=== PATIENT | male | born 1935 | race Caucasian/White ===

== ENCOUNTER 2018-09-19 10:41 | Inpatient (IN) | payer OTHER, BC ==
[~2018-09-19] VITALS: Ht 182.9 cm; Wt 78.0 kg
[2018-09-19 10:44] VITALS: BP 164/70
[2018-09-19 11:21] LABS: BASOPHILS # (AUTO) 0.1 K/uL (0.00-0.22); EOSINOPHILS # (AUTO) 0.1 K/uL (0-0.4); EOSINOPHILS % (AUTO) 0.8 % (0.0-4.0); HEMATOCRIT 42.1 % (36-52); LYMPHOCYTES # (AUTO) 2.2 K/uL (2.0-11.5); LYMPHOCYTES % (AUTO) 27.6 % (20.5-51.1); MEAN CORPUSCULAR HEMOGLOBIN 29 pg (27-31); MEAN CORPUSCULAR HGB CONC 33 g/dL (33-37); MEAN CORPUSCULAR VOLUME 88.1 fL (80-94); MONOCYTES # (AUTO) 0.4 K/uL (0.8-1.0); MONOCYTES % (AUTO) 5.1 % (1.7-9.3); NEUTROPHILS # (AUTO) 5.1 K/uL (1.8-7.7); NEUTROPHILS % (AUTO) 65.5 % (42.2-75.2); PLATELET COUNT (AUTO) 173 K/uL (140-450); RED BLOOD CELL COUNT(AUTO) 4.78 MIL/uL (4.20-6.10); RED CELL DISTRIBUTION WIDTH 14.7 % (11.6-13.7); WHITE BLOOD COUNT (AUTO) 7.8 K/uL (4.8-10.8)
[2018-09-19 11:24] LABS: ANION GAP 11.1 (8-16); CARBON DIOXIDE 27.6 mmol/L (21-32); CHLORIDE 100 mmol/L (98-107); CREATININE 1.4 mg/dL (0.7-1.3); GLUCOSE 143 mg/dL (74-106); POTASSIUM 3.7 mmol/L (3.5-5.1); SODIUM SERUM 135 mmol/L (136-145); UREA NITROGEN, BLOOD 15 mg/dL (7-18)
[2018-09-19 11:27] LABS: PROTHROMBIN TIME 10.6 secs (10.8-13.4)
[2018-09-19 11:30] LABS: ALBUMIN 3.4 g/dL (3.4-5.0); ASPARTATE AMINOTRANSFERASE 19 U/L (15-37); TOTAL BILIRUBIN 0.9 mg/dL (0.0-1.0)
[2018-09-19] MEDS ORDERED: DOCUSATE SODIUM 100 MG GELCAP PO PRN (12:45)
[2018-09-19] MEDS ORDERED: ACETAMINOPHEN 325 MG TAB PO PRN (12:45)
[2018-09-19] MEDS ORDERED: MORPHINE SULFATE 4 MG/ML SYR IVP PRN (12:45)
[2018-09-19] MEDS ORDERED: ONDANSETRON 4 MG/2 ML VIAL IM/IVP PRN (12:45)
[2018-09-19] MEDS ORDERED: HYDROcodone/APAP 5/325 MG 1 TAB TAB PO PRN (12:45)
[2018-09-19 12:49] LABS: LEUKOCYTE ESTERASE ,URINE 2+ (NEGATIVE)
[2018-09-19 12:50] LABS: APPEARANCE,URINE HAZY (CLEAR); BILIRUBIN,URINE NEGATIVE (NEGATIVE); BLOOD, URINE NEGATIVE (NEGATIVE); COLOR,URINE YELLOW (YELLOW); UGLUCOSE NEGATIVE (NEGATIVE)
[2018-09-19 12:51] LABS: NITRITE, URINE NEGATIVE (NEGATIVE)
[2018-09-19] MEDS ORDERED: cefTRIAXone 1,000 MG VIAL ONE (12:52)
[2018-09-19] MEDS ORDERED: MECLIZINE 25 MG TAB PO PRN (12:55)
[2018-09-19 13:01] LABS: RBC,URINE 0-5 (RARE) /HPF (0-5); WBC,URINE 20-60 /HPF (0-5)
[2018-09-19] MEDS ORDERED: CARV3.12 PO (13:20)
[2018-09-19] MEDS ORDERED: ATOR10TA PO (13:20)
[2018-09-19] MEDS ORDERED: TAMS0.4C96 PO (13:20)
[2018-09-19] MEDS ORDERED: LEVO0.087 PO (13:20)
[2018-09-19] MEDS ORDERED: ALLO100T21 PO (13:20)
[2018-09-19] MEDS ORDERED: DOCU-299 PO (13:20)
[2018-09-19] MEDS ORDERED: ELA50 PO (13:20)
[2018-09-19] MEDS ORDERED: LUBI24SG4 PO (13:20)
[2018-09-19 13:25] LABS: MAGNESIUM 1.9 mg/dL (1.8-2.4); PHOSPHORUS 2.4 mg/dL (2.5-4.9)
[2018-09-19 13:26] LABS: FREE T4 (FREE THYROXINE) 1.28 ng/dL (0.76-1.46); THYROID STIMULATING HORMONE 0.85 uIU/mL (0.34-3.74)
[2018-09-19 13:55] VITALS: BP 161/79
[2018-09-19] MEDS ORDERED: ALBUTEROL SULFATE/IPRATROPIU 3 ML SOL IH PRN (14:05)
[2018-09-19] MEDS ORDERED: SODIUM PHOS / POTASSIUM PHOS 1 PKT PDR PO SCH (14:30)
[2018-09-19 16:33] VITALS: BP 171/73
[2018-09-19] MEDS: NACL 0.9% 1,000 ML IV SCH (16:53)
[2018-09-19] MEDS ORDERED: CARVEDILOL 6.25 MG TAB ONE (17:30)
[2018-09-19 18:23] VITALS: BP 146/74
[2018-09-19] MEDS: CARVEDILOL 3.125 MG TAB PO SCH ×2 (18:33→20:13)
[2018-09-19 19:43] VITALS: BP 149/75
[2018-09-19] MEDS: DOCUSATE SODIUM 100 MG GELCAP PO SCH (20:11)
[2018-09-19] MEDS: AMITRIPTYLINE 50 MG TAB PO SCH (20:13)
[2018-09-19] MEDS: ATORVASTATIN 20 MG TAB PO SCH (20:13)
[2018-09-19] MEDS ORDERED: INFLUENZA VIRUS VACCINE QUAD 0.5 ML SYR IMVAC PRN (21:05)
[2018-09-20] VITALS: BP 139/64
[2018-09-20] MEDS ORDERED: traZODone 50 MG TAB PO SCH (01:30)
[2018-09-20 04:00] VITALS: BP 155/69
[2018-09-20] MEDS: NACL 0.9% 1,000 ML IV SCH (05:50)
[2018-09-20] MEDS: LEVOTHYROXINE 0.088 MG TAB PO SCH (05:56)
[2018-09-20 06:49] LABS: BASOPHILS # (AUTO) 0.1 K/uL (0.00-0.22); BASOPHILS % (AUTO) 0.9 % (0.0-2.0); EOSINOPHILS # (AUTO) 0.1 K/uL (0-0.4); EOSINOPHILS % (AUTO) 0.7 % (0.0-4.0); HEMATOCRIT 39.9 % (36-52); HEMOGLOBIN 13.3 g/dL (12.0-18.0); LYMPHOCYTES # (AUTO) 2.3 K/uL (2.0-11.5); LYMPHOCYTES % (AUTO) 25.1 % (20.5-51.1); MEAN CORPUSCULAR HEMOGLOBIN 29 pg (27-31); MEAN CORPUSCULAR HGB CONC 33 g/dL (33-37); MEAN CORPUSCULAR VOLUME 87.9 fL (80-94); MONOCYTES # (AUTO) 0.7 K/uL (0.8-1.0); MONOCYTES % (AUTO) 7.3 % (1.7-9.3); PLATELET COUNT (AUTO) 159 K/uL (140-450); RED BLOOD CELL COUNT(AUTO) 4.54 MIL/uL (4.20-6.10); WHITE BLOOD COUNT (AUTO) 9.1 K/uL (4.8-10.8)
[2018-09-20 07:36] LABS: CARBON DIOXIDE 31.1 mmol/L (21-32); CHLORIDE 103 mmol/L (98-107); CREATININE 1.3 mg/dL (0.7-1.3); GLUCOSE 100 mg/dL (74-106); MAGNESIUM 1.8 mg/dL (1.8-2.4); PHOSPHORUS 3.8 mg/dL (2.5-4.9); POTASSIUM 4.1 mmol/L (3.5-5.1); SODIUM SERUM 137 mmol/L (136-145); UREA NITROGEN, BLOOD 14 mg/dL (7-18)
[2018-09-20 08:00] VITALS: BP 164/75
[2018-09-20 08:01] LABS: CHOL/HDL RATIO 2.4 (1-4.5)
[2018-09-20] MEDS: ALLOPURINOL 100 MG TAB PO SCH (09:04)
[2018-09-20] MEDS: DOCUSATE SODIUM 100 MG GELCAP PO SCH ×2 (09:04→20:21)
[2018-09-20] MEDS: TAMSULOSIN 0.4 MG CAP PO SCH (09:04)
[2018-09-20] MEDS ORDERED: COMMUNICATION ORDER MC SCH (11:25)
[2018-09-20 12:00] VITALS: BP 120/69
[2018-09-20] MEDS ORDERED: AMITIZA 24 MCG PO SCH (12:00)
[2018-09-20 16:00] VITALS: BP 164/81
[2018-09-20 20:00] VITALS: BP 155/63
[2018-09-20] MEDS: ATORVASTATIN 20 MG TAB PO SCH (20:21)
[2018-09-20] MEDS: CARVEDILOL 3.125 MG TAB PO SCH (20:22)
[2018-09-20] MEDS: traZODone 50 MG TAB PO SCH (20:22)
[2018-09-20] MEDS: AMITRIPTYLINE 50 MG TAB PO SCH (20:22)
[2018-09-20] MEDS: AMITIZA 24 MCG PO SCH (20:23)
[2018-09-21] VITALS: BP 154/73
[2018-09-21 04:00] VITALS: BP 156/69
[2018-09-21] MEDS: NACL 0.9% 1,000 ML IV SCH (04:46)
[2018-09-21] MEDS: LEVOTHYROXINE 0.088 MG TAB PO SCH (05:52)
[2018-09-21 07:12] LABS: BASOPHILS # (AUTO) 0.1 K/uL (0.00-0.22); BASOPHILS % (AUTO) 0.7 % (0.0-2.0); EOSINOPHILS # (AUTO) 0.1 K/uL (0-0.4); EOSINOPHILS % (AUTO) 0.8 % (0.0-4.0); HEMATOCRIT 38.6 % (36-52); HEMOGLOBIN 12.8 g/dL (12.0-18.0); LYMPHOCYTES # (AUTO) 1.9 K/uL (2.0-11.5); LYMPHOCYTES % (AUTO) 21.7 % (20.5-51.1); MEAN CORPUSCULAR HEMOGLOBIN 29 pg (27-31); MEAN CORPUSCULAR HGB CONC 33 g/dL (33-37); MEAN CORPUSCULAR VOLUME 88.2 fL (80-94); MONOCYTES # (AUTO) 0.6 K/uL (0.8-1.0); MONOCYTES % (AUTO) 7.5 % (1.7-9.3); NEUTROPHILS % (AUTO) 69.3 % (42.2-75.2); PLATELET COUNT (AUTO) 161 K/uL (140-450); RED BLOOD CELL COUNT(AUTO) 4.38 MIL/uL (4.20-6.10); RED CELL DISTRIBUTION WIDTH 14.8 % (11.6-13.7); WHITE BLOOD COUNT (AUTO) 8.7 K/uL (4.8-10.8)
[2018-09-21 07:53] LABS: ANION GAP 9.3 (8-16); CARBON DIOXIDE 30.7 mmol/L (21-32); CHLORIDE 103 mmol/L (98-107); CREATININE 1.3 mg/dL (0.7-1.3); GLUCOSE 105 mg/dL (74-106); SODIUM SERUM 139 mmol/L (136-145); UREA NITROGEN, BLOOD 15 mg/dL (7-18)
[2018-09-21 07:57] LABS: PHOSPHORUS 3.8 mg/dL (2.5-4.9)
[2018-09-21 08:00] VITALS: BP 140/72
[2018-09-21] MEDS: ALLOPURINOL 100 MG TAB PO SCH (08:58)
[2018-09-21] MEDS: TAMSULOSIN 0.4 MG CAP PO SCH (08:58)
[2018-09-21] MEDS: AMITIZA 24 MCG PO SCH ×2 (08:59→20:10)
[2018-09-21] MEDS: DOCUSATE SODIUM 100 MG GELCAP PO SCH ×2 (08:59→20:07)
[2018-09-21 12:00] VITALS: BP 136/73
[2018-09-21 16:00] VITALS: BP 150/61
[2018-09-21 20:00] VITALS: BP 149/65
[2018-09-21] MEDS: ATORVASTATIN 20 MG TAB PO SCH (20:06)
[2018-09-21] MEDS: traZODone 50 MG TAB PO SCH (20:07)
[2018-09-21] MEDS: CARVEDILOL 3.125 MG TAB PO SCH (20:07)
[2018-09-21] MEDS: AMITRIPTYLINE 50 MG TAB PO SCH (20:09)
[2018-09-22] VITALS: BP 102/66
[2018-09-22 04:00] VITALS: BP 105/51
[2018-09-22] MEDS: NACL 0.9% 1,000 ML IV SCH (05:08)
[2018-09-22] MEDS: LEVOTHYROXINE 0.088 MG TAB PO SCH (06:16)
[2018-09-22 07:11] LABS: ANION GAP 8.9 (8-16); CARBON DIOXIDE 29.4 mmol/L (21-32); CHLORIDE 103 mmol/L (98-107); CREATININE 1.2 mg/dL (0.7-1.3); GLUCOSE 103 mg/dL (74-106); POTASSIUM 4.3 mmol/L (3.5-5.1); SODIUM SERUM 137 mmol/L (136-145); UREA NITROGEN, BLOOD 16 mg/dL (7-18)
[2018-09-22 08:00] VITALS: BP 145/64
[2018-09-22] MEDS: TAMSULOSIN 0.4 MG CAP PO SCH (08:39)
[2018-09-22] MEDS: DOCUSATE SODIUM 100 MG GELCAP PO SCH (08:39)
[2018-09-22] MEDS: ALLOPURINOL 100 MG TAB PO SCH (08:39)
[2018-09-22] MEDS: AMITIZA 24 MCG PO SCH (08:40)
[2018-09-22 08:57] LABS: HEMATOCRIT 36.9 % (36-52); HEMOGLOBIN 12.3 g/dL (12.0-18.0); RED BLOOD CELL COUNT(AUTO) 4.21 MIL/uL (4.20-6.10); WHITE BLOOD COUNT (AUTO) 8.4 K/uL (4.8-10.8)
[2018-09-22 08:58] LABS: BASOPHILS % (AUTO) 0.8 % (0.0-2.0); EOSINOPHILS % (AUTO) 1.5 % (0.0-4.0); LYMPHOCYTES % (AUTO) 23.1 % (20.5-51.1); MEAN CORPUSCULAR HEMOGLOBIN 29 pg (27-31); MEAN CORPUSCULAR HGB CONC 33 g/dL (33-37); MEAN CORPUSCULAR VOLUME 87.5 fL (80-94); MONOCYTES % (AUTO) 8.3 % (1.7-9.3); NEUTROPHILS # (AUTO) 5.5 K/uL (1.8-7.7); NEUTROPHILS % (AUTO) 66.3 % (42.2-75.2); RED CELL DISTRIBUTION WIDTH 14.9 % (11.6-13.7)
[2018-09-22 08:59] LABS: BASOPHILS # (AUTO) 0.1 K/uL (0.00-0.22); EOSINOPHILS # (AUTO) 0.1 K/uL (0-0.4); LYMPHOCYTES # (AUTO) 1.9 K/uL (2.0-11.5); MONOCYTES # (AUTO) 0.7 K/uL (0.8-1.0); PLATELET COUNT (AUTO) 152 K/uL (140-450)
[2018-09-22 12:00] VITALS: BP 144/63
== END 2018-09-22 15:00 | disposition home health service (06) | DRG 682 ==
LOC: MED 10:41 → MTU 12:48
PROVIDERS: ADMIT Preventive Medicine Preventive Medicine/Occupational Environmental Medicine; ATTEND Preventive Medicine Preventive Medicine/Occupational Environmental Medicine
DX: N17.0 Acute kidney failure with tubular necrosis (principal); G93.41 Metabolic encephalopathy; N39.0 Urinary tract infection, site not specified; E44.1 Mild protein-calorie malnutrition; I48.91 Unspecified atrial fibrillation; Z68.23 Body mass index [BMI] 23.0-23.9, adult; E86.0 Dehydration; E83.39 Other disorders of phosphorus metabolism; I10 Essential (primary) hypertension; E03.9 Hypothyroidism, unspecified; E78.00 Pure hypercholesterolemia, unspecified; F32.9 Major depressive disorder, single episode, unspecified; I25.10 Atherosclerotic heart disease of native coronary artery without angina pectoris; J44.9 Chronic obstructive pulmonary disease, unspecified; K59.09 Other constipation; M10.9 Gout, unspecified; N40.0 Benign prostatic hyperplasia without lower urinary tract symptoms; Z66 Do not resuscitate; I69.992 Facial weakness following unspecified cerebrovascular disease; Z79.01 Long term (current) use of anticoagulants; Z95.5 Presence of coronary angioplasty implant and graft; Z79.899 Other long term (current) drug therapy; Z83.3 Family history of diabetes mellitus; Z71.3 Dietary counseling and surveillance
CPT/HCPCS: 36415; 70450; 71045; 80048; 80053; 81001; 82550; 83036; 83605; 83690; 83735; 83880; 84100; 84134; 84439; 84443; 84479; 84484; 85025; 85610; 85651; 85730; 86140; 87040; 87081; 87086; 93880; 94640; 96365; 97110; 97116; 97530; 99285; J0696; J1644; J7030; J7620; Q0092

== ENCOUNTER 2019-02-02 18:17 | Emergency (ER) | payer OTHER, BC ==
[~2019-02-02] VITALS: Ht 182.9 cm; Wt 78.9 kg
[~2019-02-02 18:17] MED LIST: ALLO100T21 PO; ATOR10TA PO; CARV3.12 PO; DOCU-299 PO; ELA50 PO; LEVO0.087 PO; LUBI24SG4 PO; TAMS0.4C96 PO
[2019-02-02 18:21] VITALS: BP 187/86
--- NOTE | 2019-02-02 18:31 | NUR ---
PT TAKEN TO BED 10 BY WHEELCHAIR.
--- NOTE | 2019-02-02 19:05 | NUR ---
Cirilo tate in [facility] - 02/02/19 at 1912 by YELITZA BP 146/86.
--- NOTE | 2019-02-02 19:07 | NUR ---
REPORT GIVEN TO GREER BUSTAMANTE
--- NOTE | 2019-02-02 19:07 | NUR ---
C/O ELEVATED BP (187/86). DENIES DIZZINESS,TAPIA, N/V. TOOK 1/2 TAB OF CARVEDILOL 3.125MG AT 1400, ASPIRIN AT 0800 TODAY. SKIN IS PINK/WARM/DRY; AAOX4 HR EVEN AND REGULAR; PT DENIES ANY FEVER, CP, SOB, OR COUGH AT THIS TIME; PATIENT STATES PAIN OF 0/10 AT THIS TIME; VSS; PATIENT POSITIONED FOR COMFORT; HOB ELEVATED; BEDRAILS UP 12; BED DOWN. ER MD MADE AWARE OF PT STATUS.
--- NOTE | 2019-02-02 19:08 | NUR ---
RECIEVED REPORT FROM RUPINDER FOR CONTINUED CARE
--- NOTE | 2019-02-02 19:08 | NUR ---
BP 146/86
--- NOTE | 2019-02-02 19:20 | NUR ---
PT MOVED TO BED 8
--- NOTE | 2019-02-02 19:30 | NUR ---
RECEIVED REPORT FROM ROBBY BUTTERFIELD.
--- NOTE | 2019-02-02 19:55 | NUR ---
ER DOCTOR AT BEDSIDE
--- NOTE | 2019-02-02 19:55 | NUR ---
DR. DUQUE EVALUATING AT BEDSIDE.
--- NOTE | 2019-02-02 20:52 | NUR ---
PT TAKEN TO CT VIA RLEAH.
--- NOTE | 2019-02-02 22:08 | NUR ---
PT BP 174/77, HR 65; PT DENIES CP, SOB, N/V OR DIZZINESS. ER MD MADE AWARE. PER ER MD, PT OK FOR DISCHARGE.
[2019-02-02 22:09] VITALS: BP 174/77
--- NOTE | 2019-02-02 22:09 | NUR ---
Patient discharged with v/s stable. Written and verbal after care instructions given and explained. Patient verbalized understanding. Wheel Chair Assisted with family to car by Parviz SCHULZ. All questions addressed prior to discharge. Advised to follow up with PMD.
== END 2019-02-02 22:09 | disposition home or self-care (01) ==
LOC: MED 18:17
DX: I10 Essential (primary) hypertension (principal); I48.91 Unspecified atrial fibrillation; J44.9 Chronic obstructive pulmonary disease, unspecified; E03.9 Hypothyroidism, unspecified; Z86.73 Personal history of transient ischemic attack (TIA), and cerebral infarction without residual deficits; Z79.899 Other long term (current) drug therapy
CPT/HCPCS: 70450; 99284

== ENCOUNTER 2020-01-09 03:25 | Inpatient (IN) | payer OTHER, BC ==
[~2020-01-09] VITALS: Ht 172.7 cm; Wt 74.8 kg
[2020-01-09] VITALS (10 sets, daily range): BP systolic 95–146; BP diastolic 52–72
--- NOTE | 2020-01-09 03:30 | NUR ---
RICHARD, TAKEN TO BED #11
--- NOTE | 2020-01-09 03:35 | NUR ---
PT BIBA FOR SYNCOPE. PT STATES HE FELL AT HOME. PT DENIES HEAD TRUAMA, PT STATES FEELING WEAK AND TIRED WHEN HE STANDS. PT POSITIVE FOR ORTHOS FOR EMS. PT APPEARS TO BE IN NO DISTRESS AT THIS TIME. IV WAS STARTED BY EMS. PT GIVEN 1000ML BOLUSE NS. PT AAX4 GCS 15. DENIES N/V/D; SKIN IS PINK/WARM/DRY; AAOX4 LUNGS CLEAR BL; HR EVEN AND REGULAR; PT DENIES ANY FEVER, CP, SOB, OR COUGH AT THIS TIME; PATIENT STATES PAIN OF 0/10 AT THIS TIME; VSS; PATIENT POSITIONED FOR COMFORT; HOB ELEVATED; BEDRAILS UP X2; BED DOWN. ER MD MADE AWARE OF PT STATUS.
--- NOTE | 2020-01-09 03:39 | NUR ---
EKG PERFORMED AT BEDSIDE
[2020-01-09 04:02] LABS: BASOPHILS # (AUTO) 0.1 K/uL (0.00-0.22); BASOPHILS % (AUTO) 0.7 % (0.0-2.0); EOSINOPHILS # (AUTO) 0.2 K/uL (0-0.4); EOSINOPHILS % (AUTO) 2.2 % (0.0-4.0); HEMATOCRIT 33.5 % (36-52); HEMOGLOBIN 11.7 g/dL (12.0-18.0); LYMPHOCYTES # (AUTO) 1.4 K/uL (2.0-11.5); LYMPHOCYTES % (AUTO) 16.7 % (20.5-51.1); MEAN CORPUSCULAR HEMOGLOBIN 31 pg (27-31); MEAN CORPUSCULAR HGB CONC 35 g/dL (33-37); MEAN CORPUSCULAR VOLUME 87.8 fL (80-94); MONOCYTES # (AUTO) 0.7 K/uL (0.8-1.0); NEUTROPHILS # (AUTO) 6.1 K/uL (1.8-7.7); NEUTROPHILS % (AUTO) 72.4 % (42.2-75.2); PLATELET COUNT (AUTO) 183 K/uL (140-450); RED BLOOD CELL COUNT(AUTO) 3.82 MIL/uL (4.20-6.10); RED CELL DISTRIBUTION WIDTH 13.9 % (11.6-13.7); WHITE BLOOD COUNT (AUTO) 8.4 K/uL (4.8-10.8)
--- NOTE | 2020-01-09 04:26 | NUR ---
PT TAKEN TO CT VIA BED
[2020-01-09 04:28] LABS: ALBUMIN 2.9 g/dL (3.4-5.0); ANION GAP 8.8 (8-16); ASPARTATE AMINOTRANSFERASE 18 U/L (15-37); CARBON DIOXIDE 28.9 mmol/L (21-32); CHLORIDE 103 mmol/L (98-107); CREATININE 1.1 mg/dL (0.6-1.3); GLUCOSE 105 mg/dL (74-106); POTASSIUM 3.7 mmol/L (3.5-5.1); SODIUM SERUM 137 mmol/L (136-145); TOTAL BILIRUBIN 0.5 mg/dL (0.0-1.0); UREA NITROGEN, BLOOD 14 mg/dL (7-18)
[2020-01-09] MEDS ORDERED: ASPI-1822 PO (04:39)
[2020-01-09] MEDS ORDERED: CLON0.1T46 TD (04:39)
[2020-01-09] MEDS ORDERED: CLON0.1T42 PO (04:39)
--- NOTE | 2020-01-09 05:23 | NUR ---
PT APPEARS TO BE IN NO DISTRESS AT THIS TIME. NO CHANGES FROM PREVIOUS ASESSSMENT. PT RESTING COMFORTABLY IN BED.
[2020-01-09] MEDS ORDERED: DEXT 5% /NACL 0.9% 1,000 ML IV SCH (05:31)
[2020-01-09] MEDS ORDERED: ONDANSETRON 4 MG/2 ML VIAL IVP PRN (05:35)
[2020-01-09] MEDS ORDERED: HYDROcodone/APAP 7.5/325 MG 1 TAB PO PRN (05:35)
[2020-01-09] MEDS ORDERED: ACETAMINOPHEN 325 MG TAB PO PRN (05:35)
[2020-01-09 06:22] LABS: PROTHROMBIN TIME 11.1 secs (10.8-13.4)
[2020-01-09 06:25] LABS: CHOL/HDL RATIO 2.1 (1-4.5); MAGNESIUM 1.8 mg/dL (1.8-2.4); PHOSPHORUS 2.4 mg/dL (2.5-4.9); THYROID STIMULATING HORMONE 1.59 uIU/mL (0.34-3.74)
--- NOTE | 2020-01-09 06:45 | NUR ---
NO CHANGES FROM PREVIOUS ASSESSMENT. PT APPEARS TO BE IN NO DISTRESS. VSS. PT TAKEN TO ROOM 111APt report given to SUMAN BUSTAMANTE. Transfer of care at this time.
--- NOTE | 2020-01-09 06:45 | NUR ---
RECEIVED REPORT FROM ER NURSE. PATIENT IS IN STABLE CONDITION. WILL ENDORSE TO DAY SHIFT NURSE.
--- NOTE | 2020-01-09 07:10 | NUR ---
RECEIVED BEDSIDE REPORT FROM NIGHTSHIFT NURSE. PT RESTING IN BED. ABLE TO MAKE NEEDS KNOWN. RESPIRATIONS EVEN AND UNLABORED WITH NO SOB OR RESPIRATORY DISTRESS. SKIN WARM AND DRY TO TOUCH. IV SITE IN LAC 2OG IS CLEAN, DRY, AND INTACT. SAFETY MEASURES IN PLACE. WILL CONTINUE TO MONITOR.
[2020-01-09] MEDS: FAMOTIDINE 20 MG TAB PO SCH (08:14)
[2020-01-09] MEDS: DOCUSATE SODIUM 100 MG GELCAP PO SCH ×2 (08:14→21:20)
--- NOTE | 2020-01-09 08:15 | NUR ---
ADMINISTERED SCHED MED PRESCRIBED PER MD ORDER. PT TOLERATED WELL. MEDICATION EDUCATION PERFORMED. PT VERBALIZED UNDERSTANDING. SAFETY MEASURES IN PLACE. WILL CONTINUE TO MONITOR
[2020-01-09] MEDS ORDERED: ALBUTEROL SULFATE/IPRATROPIU 3 ML SOL IH PRN (08:35)
[2020-01-09] MEDS ORDERED: MECLIZINE 25 MG TAB PO PRN (08:35)
--- NOTE | 2020-01-09 12:30 | NUR ---
HOURLY ROUNDING. PT RESTING IN BED. ABLE TO MAKE NEEDS KNOWN. RESPIRATIONS EVEN AND UNLABORED WITH NO SOB OR RESPIRATORY DISTRESS. SKIN WARM AND DRY TO TOUCH. SAFETY MEASURES IN PLACE. WILL CONTINUE TO MONITOR.
--- NOTE | 2020-01-09 13:09 | NUR ---
DC PLANNIN YRS OLD MALE PATIENT WAS ADMITTED FROM HOME WITH A DX OF SYNCOPE. PT HAS A HX OF HTN, CAD S/P CATHETERIZATION AND STENT PLACEMENT 2015 CAV A-FIB AND COPD. CT HEAD (-) CAROTID US PENDING , STARTED ON MECLIZINE 12.5 MG PO PRN ECHO PENDING , CONSULTED WITH NEUROLOGIST WITH DR BARRAGAN AND EXHIBIT BUILDER CONSULT . DC PLAN TO GO HOME WHEN STABLE CM TO FOLLOW. Addendum: 01/10/20 at 1631 by Olinda Colon CM DC PLANNING: ECHO 65% EF, PT EVALUATION DONE RECOMMENDED FOR FURTHER REHABILITATION SERVICE CONTINUE MEDICATION DC PLAN TO GO HOME WHEN STABLE CM TO FOLLOW. Addendum: 01/11/20 at 1057 by Elvira Linares 0845: RECEIVED AN ORDER FOR HOME HOME [facility] FOR HOME SAFETY EVAL AND PT. [id number]: MET WITH THE PATIENT AT THE BEDSIDE TO DISCUSS DC PLANNING AND IS IN AGREEMENT. HE STATED HE WAS WITH A HOME HEALTH SERVICES PRIOR TO ADMISSION AND IS VERY HAPPY WITH THE SERVICES AND WANT TO CONTINUE WITH THEIR SERVICES, HOWEVER HE DOES NOT REMEMBER THE NAME. HE STATED HIS DAUGHTER WILL KNOW THIS. IMM AND CHOICE OF VENDOR LETTERS PROVIDED. PATIENT SIGNED AND PLACED IN THE CHART. PER PRIMARY RN , PATIENT'S DAUGHTER PROVIDED HER WITH [facility] [phone]. CONTACTED THE PROVIDED NUMBER, ABLE TO SPEAK TO BLAIR AND SHE CONFIRMED THAT THE PATIENT WAS UNDER THEIR SERVICES PRIOR TO ADMISSION. SHE PROVIDED ME WITH THE FAX NUMBER [phone] TO SEND REFERRAL AND TO ATTENTION IT TO THEIR DON NACHO WRIGHT. REFERRAL SENT. WILL FOLLOW UP. Addendum: 01/11/20 at 1423 by Elvira Linares RECEIVED A FAX FROM [facility], CONFIRMING THE ACCEPTANCE OF THIS PATIENT AND THE START OF SERVICE FOR RESUMPTION OF CARE FOR TOMORROW 01/12/2020. CONTACTED PATIENT AT [phone], ABLE TO SPEAK TO ASHWINI (DAUGHTER IN LAW) REGARDING HOME HEALTH. ABLE TO VERBALIZE UNDERSTANDING.
--- NOTE | 2020-01-09 13:45 | NUR ---
ORTHOSTATICS OBTAINED AND ARE FOLLOWS: LAYING DOWN FLAT- 1345: 125/61BP AND 65 HR. SITTING SUPINE- 1350: 115/59BP AND 71HR. STANDING- 1355: 95/52BP, AND 82 HR.
--- NOTE | 2020-01-09 17:24 | NUR ---
HOURLY ROUNDING. PT SLEEPING IN BED. RESPONSIVE TO VERBAL AND TACTILE STIMULI. ABLE TO MAKE NEEDS KNOWN. RESPIRATIONS EVEN AND UNLABORED WITH NO SOB OR RESPIRATORY DISTRESS. SKIN WARM AND DRY TO TOUCH. SAFETY MEASURES IN PLACE. WILL CONTINUE TO MONITOR.
--- NOTE | 2020-01-09 19:18 | NUR ---
ENDORSED AT BEDSIDE WITH NIGHTSHIFT NURSE. PT RESTING IN BED. ABLE TO MAKE NEEDS KNOWN. RESPIRATIONS EVEN AND UNLABORED WITH NO SOB OR RESPIRATORY DISTRESS. SKIN WARM AND DRY TO TOUCH. SAFETY MEASURES IN PLACE. PT IS STABLE
--- NOTE | 2020-01-09 19:19 | NUR ---
RECEIVED BEDSIDE REPORT FROM AM SHIFT NURSE. PT RESTING IN BED. ABLE TO MAKE NEEDS KNOWN. RESPIRATIONS EVEN AND UNLABORED WITH NO SOB OR RESPIRATORY DISTRESS. SKIN WARM AND DRY TO TOUCH. IV SITE IN LAC 2OG IS CLEAN, DRY, AND INTACT. SAFETY MEASURES IN PLACE. WILL CONTINUE TO MONITOR.PER LAST NURSE HAS POSITIVE ORTHOSTATIC HYPOTENSION. WILL MONITOR RSK FOR FALL WHILE AMBULATING
--- NOTE | 2020-01-09 21:00 | NUR ---
TOLERATED MEDS, NO SOB; NO RESPIRATORY DISTRESS WILL CONTINUE TO MONITOR
[2020-01-09] MEDS ORDERED: UMEC1POW IH (22:00)
[2020-01-09 22:03] LABS: APPEARANCE,URINE CLEAR (CLEAR); BILIRUBIN,URINE NEGATIVE (NEGATIVE); BLOOD, URINE NEGATIVE (NEGATIVE); COLOR,URINE YELLOW (YELLOW); LEUKOCYTE ESTERASE ,URINE NEGATIVE (NEGATIVE); NITRITE, URINE NEGATIVE (NEGATIVE); PH,URINE 5.5 (5.0-9.0); UGLUCOSE NEGATIVE (NEGATIVE)
--- NOTE | 2020-01-09 23:10 | NUR ---
PT WENT TO THE BATHROOM, STEADY GAIT W/ 1 ASSISTANCE W/ POSITIVE ORTHOSTATIC HYPOTENSION ENDORSED EARLIER. FALL RISK
--- NOTE | 2020-01-10 02:05 | NUR ---
PT SLEEPING, NO S/ SX'S OF PAIN; WILL CONTINUE TO MONITOR
[2020-01-10 04:00] VITALS: BP 135/60
--- NOTE | 2020-01-10 07:25 | NUR ---
RECEIVED BEDSIDE REPORT FROM NIGHTSHIFT NURSE. PT RESTING IN BED. ABLE TO MAKE NEEDS KNOWN. RESPIRATIONS EVEN AND UNLABORED WITH NO SOB OR RESPIRATORY DISTRESS. SKIN WARM AND DRY TO TOUCH. SAFETY MEASURES IN PLACE. WILL CONTINUE TO MONITOR.
[2020-01-10 07:33] LABS: BASOPHILS # (AUTO) 0.1 K/uL (0.00-0.22); BASOPHILS % (AUTO) 0.8 % (0.0-2.0); EOSINOPHILS # (AUTO) 0.2 K/uL (0-0.4); EOSINOPHILS % (AUTO) 2.6 % (0.0-4.0); HEMATOCRIT 33.4 % (36-52); HEMOGLOBIN 11.6 g/dL (12.0-18.0); LYMPHOCYTES # (AUTO) 1.9 K/uL (2.0-11.5); LYMPHOCYTES % (AUTO) 25.8 % (20.5-51.1); MEAN CORPUSCULAR HEMOGLOBIN 31 pg (27-31); MEAN CORPUSCULAR HGB CONC 35 g/dL (33-37); MONOCYTES # (AUTO) 0.6 K/uL (0.8-1.0); MONOCYTES % (AUTO) 8.1 % (1.7-9.3); NEUTROPHILS # (AUTO) 4.5 K/uL (1.8-7.7); NEUTROPHILS % (AUTO) 62.7 % (42.2-75.2); PLATELET COUNT (AUTO) 186 K/uL (140-450); RED BLOOD CELL COUNT(AUTO) 3.79 MIL/uL (4.20-6.10); WHITE BLOOD COUNT (AUTO) 7.3 K/uL (4.8-10.8)
[2020-01-10 07:57] LABS: CHLORIDE 104 mmol/L (98-107); CREATININE 1.1 mg/dL (0.6-1.3); GLUCOSE 95 mg/dL (74-106); SODIUM SERUM 137 mmol/L (136-145); UREA NITROGEN, BLOOD 16 mg/dL (7-18)
[2020-01-10 08:00] VITALS: BP 114/67
[2020-01-10] MEDS: NACL 0.9% 1,000 ML IV SCH ×2 (08:49→21:58)
[2020-01-10] MEDS: PSYLLIUM 12.2 GM/PKT PO SCH ×2 (08:51→20:55)
[2020-01-10] MEDS: HYDROCHLOROTHIAZIDE 25 MG TAB PO SCH (08:56)
[2020-01-10] MEDS: DOCUSATE SODIUM 100 MG GELCAP PO SCH ×2 (08:56→20:54)
--- NOTE | 2020-01-10 08:56 | NUR ---
ADMINISTERED SCHED MED PRESCRIBED PER MD ORDER. PT TOLERATED WELL. MEDICATION EDUCATION PERFORMED. PT VERBALIZED UNDERSTANDING. SAFETY MEASURES IN PLACE. WILL CONTINUE TO MONITOR.
[2020-01-10] MEDS: FAMOTIDINE 20 MG TAB PO SCH (08:57)
[2020-01-10 08:58] LABS: MAGNESIUM 1.9 mg/dL (1.8-2.4)
[2020-01-10] MEDS ORDERED: [UNRECOGNIZED DRUG - OTHER] IH SCH (09:00)
[2020-01-10] MEDS: ALLOPURINOL 100 MG TAB PO SCH (09:00)
[2020-01-10 12:00] VITALS: BP 151/65
--- NOTE | 2020-01-10 12:30 | NUR ---
HOURLY ROUNDING. FAMILY AT BEDSIDE. PT RESTING IN BED. ABLE TO MAKE NEEDS KNOWN. RESPIRATIONS EVEN AND UNLABORED WITH NO SOB OR RESPIRATORY DISTRESS. SKIN WARM AND DRY TO TOUCH. SAFETY MEASURES IN PLACE. WILL CONTINUE TO MONITOR.
--- NOTE | 2020-01-10 15:02 | NUR ---
PT IS NOW IN ROOM 104B INSTEAD OF 111A. SAFETY MEASURES IN PLACE. WILL CONTINUE TO MONITOR
[2020-01-10 16:00] VITALS: BP 151/56
--- NOTE | 2020-01-10 17:30 | NUR ---
PT RESTING IN BED. ABLE TO MAKE NEEDS KNOWN. RESPIRATIONS EVEN AND UNLABORED WITH NO SOB OR RESPIRATORY DISTRESS. SKIN WARM AND DRY TO TOUCH. SAFETY MEASURES IN PLACE. PT IS STABLE
[2020-01-10] MEDS ORDERED: DOCU-299 PO (17:31)
[2020-01-10] MEDS ORDERED: METPCK PO (17:31)
--- NOTE | 2020-01-10 19:15 | NUR ---
ENDORSED TO NIGHTSHIFT NURSE AT BEDSIDE. PT RESTING IN BED. ABLE TO MAKE NEEDS KNOWN. RESPIRATIONS EVEN AND UNLABORED WITH NO SOB OR RESPIRATORY DISTRESS. SKIN WARM AND DRY TO TOUCH. SAFETY MEASURES IN PLACE. PT IS STABLE
--- NOTE | 2020-01-10 19:16 | NUR ---
RECEIVED PT IN STABLE CONDITION FROM AM NURSE. MED SURG PT. AWAKE, ALERT AND ORIENTED X4. WITH NO C/O ANY DISCOMFORT NOR PAIN NOTED. BEDREST. BUT CAN BE UP WITH ASSISTANCE. PLAN OF CARE DISCUSSED AND VERBALIZED UNDERSTANDING. WITH IVF INFUSING WELL ON THE LT ACG#20. FREQ ROUNDS NEEDED. BED ON LOW POSITION, SIDE RAILS UP X2. CALL LIGHT AND URINAL PLACED WITHIN EASY REACH. WILL CONTINUE TO MONITOR.
--- NOTE | 2020-01-10 20:27 | NUR ---
RECEIVED PATIENT ON ROOM AIR, PULSE OX SAT 98%. PT DENIES SOB. PT MADE AWARE OF ORDERED MEDICATION FREQUENCY AND INSTRUCTED TO CALL NEEDED FOR SOB. NO ACUTE RESPIRATORY DISTRESS NOTED AT THIS TIME. WILL CONTINUE TO MONITOR.
[2020-01-10] MEDS ORDERED: AMITRIPTYLINE 25 MG TAB ONE ×2 (20:51→21:01)
--- NOTE | 2020-01-10 20:55 | NUR ---
ALL DUE MEDS FOR TONIGHT GIVEN. TOLERATED WELL.
[2020-01-10] MEDS ORDERED: ATORVASTATIN 20 MG TAB PO SCH (21:00)
[2020-01-10] MEDS ORDERED: AMITRIPTYLINE 50 MG TAB PO SCH (21:00)
--- NOTE | 2020-01-10 22:00 | NUR ---
MADE ROUNDS. PT STILL AWAKE AND WATCHING TV.NO C/O ANY DISCOMFORT NOTED. WILL CONTINUE TO MONITOR.
[2020-01-11] VITALS: BP 141/62
--- NOTE | 2020-01-11 00:30 | NUR ---
PT IS ASLEEP. NO S/S OF ANY DISCOMFORT NOTED. WILL CONTINUE TO MONITOR.
[2020-01-11] MEDS: NACL 0.9% 1,000 ML IV SCH (01:47)
--- NOTE | 2020-01-11 02:30 | NUR ---
PT ASLEEP. NO S/S OF ANY DISCOMFORT NOTED.
--- NOTE | 2020-01-11 04:30 | NUR ---
PT REPOSITIONED FOR COMFORT. IVF INFUSNG WELL.
--- NOTE | 2020-01-11 06:30 | NUR ---
PT ASLEEP. IN COMFORTABLE POSITION. URINAL WITHIN EASY REACH. SIDE RAILS UP X2. CALL LIGHT PLACED WITHIN EASY REACH.
--- NOTE | 2020-01-11 07:10 | NUR ---
ENDORSED PT IN STABLE CONDITION TO AM NURSE.
--- NOTE | 2020-01-11 07:11 | NUR ---
RECEIVED PATIENT FROM THE MORTGAGE LOAN OFFICER NURSE, MONSERRAT, FOR CONTINUITY OF CARE. PATIENT IS AAOX4, RESPIRATIONS EVEN AND UNLABORED, ROOM AIR. VISIBLE CHEST RISE NOTED. MED-SURG. ABDOMEN SOFT AND NONTENDER. SKIN WARM, DRY, AND INTACT. IV IN THE RIGHT AC G20 RUNNING NS AT 70 ML/HR. IV PATENT AND INTACT. PATIENT IS CONTINENT, USES URINAL, AMBULATES WITH ASSIST TO THE BATHROOM. FALL PRECAUTIONS IN PLACE. BED IN LOW POSITION. CALL LIGHT IS WITHIN REACH. WILL CONTINUE TO MONITOR.
[2020-01-11 07:39] LABS: BASOPHILS # (AUTO) 0.1 K/uL (0.00-0.22); BASOPHILS % (AUTO) 1.3 % (0.0-2.0); EOSINOPHILS # (AUTO) 0.4 K/uL (0-0.4); EOSINOPHILS % (AUTO) 5.5 % (0.0-4.0); HEMATOCRIT 33.4 % (36-52); HEMOGLOBIN 11.4 g/dL (12.0-18.0); LYMPHOCYTES # (AUTO) 1.7 K/uL (2.0-11.5); LYMPHOCYTES % (AUTO) 23.1 % (20.5-51.1); MEAN CORPUSCULAR HEMOGLOBIN 30 pg (27-31); MEAN CORPUSCULAR HGB CONC 34 g/dL (33-37); MEAN CORPUSCULAR VOLUME 88.2 fL (80-94); MONOCYTES # (AUTO) 0.5 K/uL (0.8-1.0); MONOCYTES % (AUTO) 6.9 % (1.7-9.3); NEUTROPHILS # (AUTO) 4.7 K/uL (1.8-7.7); NEUTROPHILS % (AUTO) 63.2 % (42.2-75.2); PLATELET COUNT (AUTO) 191 K/uL (140-450); RED BLOOD CELL COUNT(AUTO) 3.78 MIL/uL (4.20-6.10); RED CELL DISTRIBUTION WIDTH 13.9 % (11.6-13.7); WHITE BLOOD COUNT (AUTO) 7.5 K/uL (4.8-10.8)
[2020-01-11 07:56] LABS: ANION GAP 10.5 (8-16); CARBON DIOXIDE 28.3 mmol/L (21-32); CHLORIDE 104 mmol/L (98-107); CREATININE 1.1 mg/dL (0.6-1.3); GLUCOSE 89 mg/dL (74-106); POTASSIUM 3.8 mmol/L (3.5-5.1); SODIUM SERUM 139 mmol/L (136-145); UREA NITROGEN, BLOOD 16 mg/dL (7-18)
[2020-01-11 08:00] VITALS: BP 155/65
[2020-01-11 08:01] LABS: MAGNESIUM 1.8 mg/dL (1.8-2.4); PHOSPHORUS 3.4 mg/dL (2.5-4.9)
--- NOTE | 2020-01-11 08:12 | NUR ---
DR. JAY AND THE RESIDENT DOCTORS MADE ROUNDS.
--- NOTE | 2020-01-11 08:13 | NUR ---
INFORMED DR. THAIS OCONNELL ABOUT PATIENT'S HOME HEALTH PT.
[2020-01-11] MEDS: DOCUSATE SODIUM 100 MG GELCAP PO SCH (08:33)
--- NOTE | 2020-01-11 08:33 | NUR ---
GIVEN MORNING MEDICATIONS PO. HEPARIN SUBQ IN THE LEFT UPPER ARM. PLATELET IS 191. PATIENT TOLERATED WELL. GIVEN MEDICATION EDUCATION. WILL CONTINUE TO MONITOR
[2020-01-11] MEDS: ALLOPURINOL 100 MG TAB PO SCH (08:34)
[2020-01-11] MEDS: HYDROCHLOROTHIAZIDE 25 MG TAB PO SCH (08:34)
[2020-01-11] MEDS: FAMOTIDINE 20 MG TAB PO SCH (08:35)
[2020-01-11] MEDS: PSYLLIUM 12.2 GM/PKT PO SCH (08:36)
--- NOTE | 2020-01-11 10:46 | NUR ---
PATIENT IS AWAKE, WATCHING TV. DENIES ANY PAIN. DENIES SOB. BED IN LOW POSITION. CALL LIGHT IS WTIHIN REACH. WILL CONTINUE TO MONITOR
--- NOTE | 2020-01-11 11:45 | NUR ---
GIVEN DISCHARGED INSTRUCTIONS. EXPLAINED TO CONTINUE HOME MEDS, TAKE METAMUCIL AND COLACE BID AND PICK THEM MEDS TO THE PREFERRED PHARMACY. EXPLAINED THAT PATIENT AN DR. GRIER PCP ON THE 9 AT 3:30PM. DISCUSSED THAT HE NEEDS REPEAT ULTRASOUND IN 3 MONTHS. EAT HIGH FIBER DIET. PATIENT AND DAUGHTER IN LAW DAPHNE VERBALIZED UNDERSTANDING. DAPHNE SIGNED DISCHARGED PAPERWORK. ALSO PRINTED IMAGING RESULTS. NO FURTHER QUESTIONS
--- NOTE | 2020-01-11 11:48 | NUR ---
DISCONTINUED IV AND ID BAND. PATIENT WILL CHANGE INTO HOME CLOTHES. PATIENT IS UP TO DATE WITH HIS FLU AND PNA VACCINES.
--- NOTE | 2020-01-11 11:50 | NUR ---
DISCHARGED PATIENT VIA GURNEY. PATIENT DENIES PAIN. NO SOB. PATIENT IS IN STABLE CONDITION
== END 2020-01-11 11:50 | disposition home or self-care (01) | DRG 74 ==
LOC: MED 03:25 → MTU 05:36
PROVIDERS: ADMIT General Practice; ATTEND General Practice
DX: G90.8 Other disorders of autonomic nervous system (principal); E44.0 Moderate protein-calorie malnutrition; I48.91 Unspecified atrial fibrillation; Z68.25 Body mass index [BMI] 25.0-25.9, adult; I25.10 Atherosclerotic heart disease of native coronary artery without angina pectoris; E03.9 Hypothyroidism, unspecified; J44.9 Chronic obstructive pulmonary disease, unspecified; I50.9 Heart failure, unspecified; I11.0 Hypertensive heart disease with heart failure; E78.5 Hyperlipidemia, unspecified; D64.9 Anemia, unspecified; K59.00 Constipation, unspecified; Z79.82 Long term (current) use of aspirin; Z79.899 Other long term (current) drug therapy; Z86.73 Personal history of transient ischemic attack (TIA), and cerebral infarction without residual deficits; Z95.5 Presence of coronary angioplasty implant and graft; Z83.3 Family history of diabetes mellitus
CPT/HCPCS: 36415; 70450; 71045; 80048; 80053; 81003; 82140; 83036; 83605; 83690; 83735; 83880; 84100; 84439; 84443; 84484; 85025; 85610; 85730; 87081; 93005; 93880; 97110; 97116; 97161-GP; 97530; 99285; J1644; J7030; J7042; Q0092

== ENCOUNTER 2020-07-19 10:40 | Emergency (ER) | payer OTHER, BC ==
[~2020-07-19] VITALS: Ht 172.7 cm; Wt 78.9 kg
[~2020-07-19 10:40] MED LIST changes: -CARV3.12 PO; -LEVO0.087 PO; -LUBI24SG4 PO; +METPCK PO; -TAMS0.4C96 PO; +UMEC1POW IH
[2020-07-19 10:43] VITALS: BP 148/63
--- NOTE | 2020-07-19 10:54 | NUR ---
85/M BIBA FROM HOME FOR DIZZINESS/CONFUSION 1 HOUR AGO. WAS STANDING WHEN HE FELT DIZZINESS, ASSISTED TO CHAIR BY FAMILY, NO FALL/TRAUMA. PT ARRIVES ALERT & ORIENTED TO SELF, PLACE ([place]), YEAR, SITUATION (PRESIDENT IS ANURAG). STATES THE DIZZINESS HAS DECREASED SIGNIFICANTLY FROM EARLIER. VSS ON BEDSIDE MONITOR. FSBS 107 mg/dL @ [facility]. Addendum: 07/19/20 at 1059 by DAMIEN PER EMS, PT DID NOT LOSE CONSCIOUSNESS PT IS TAKING PLAVIX BUT NO REPORTED FALLS/TRAUMA. 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
--- NOTE | 2020-07-19 11:13 | NUR ---
URINAL GIVEN TO PT. PT STATES HE WILL BE ABLE TO VOID IN URINAL LATER.
--- NOTE | 2020-07-19 11:17 | NUR ---
EMT AT BEDSIDE FOR EKG
--- NOTE | 2020-07-19 11:17 | NUR ---
Cirilo tate in [facility] - 07/19/[address] DAVID AT BEDSIDE DISCUSSING D/C WITH PATIENT
--- NOTE | 2020-07-19 11:18 | NUR ---
FISHER DIVING AT BEDSIDE
--- NOTE | 2020-07-19 11:30 | NUR ---
GARLAND (DAUGHTER IN LAW) CALLED TO SAY THAT PT DID GET DIZZY, WAS ASSISTED TO CHAIR, LOST CONSCIOUSNESS FOR APPROX 3 MIN. WHEN PT REGAINED CONSCIOUSNESS, HE DID NOT RESPOND VERBALLY FOR A FEW MINUTES, BUT WHEN HE DID START TALKING HE WAS AOX3
--- NOTE | 2020-07-19 11:30 | NUR ---
GARLAND (PERSON TO NOTIFY) [phone]
--- NOTE | 2020-07-19 11:48 | NUR ---
URINE AND BLOOD DRAW WALKED TO LAB
[2020-07-19 11:58] LABS: APPEARANCE,URINE CLEAR (CLEAR); BILIRUBIN,URINE NEGATIVE (NEGATIVE); BLOOD, URINE NEGATIVE (NEGATIVE); COLOR,URINE YELLOW (YELLOW); LEUKOCYTE ESTERASE ,URINE NEGATIVE (NEGATIVE); NITRITE, URINE NEGATIVE (NEGATIVE); PH,URINE 7.5 (5.0-9.0); UGLUCOSE NEGATIVE (NEGATIVE)
[2020-07-19 12:18] LABS: BASOPHILS % (AUTO) 0.6 % (0.0-2.0); EOSINOPHILS % (AUTO) 0.4 % (0.0-4.0); HEMATOCRIT 37.4 % (36-52); HEMOGLOBIN 12.8 g/dL (12.0-18.0); LYMPHOCYTES # (AUTO) 0.8 K/uL (2.0-11.5); LYMPHOCYTES % (AUTO) 9.5 % (20.5-51.1); MEAN CORPUSCULAR HEMOGLOBIN 31 pg (27-31); MEAN CORPUSCULAR HGB CONC 34 g/dL (33-37); MONOCYTES # (AUTO) 0.5 K/uL (0.8-1.0); MONOCYTES % (AUTO) 6.8 % (1.7-9.3); NEUTROPHILS # (AUTO) 6.6 K/uL (1.8-7.7); NEUTROPHILS % (AUTO) 82.7 % (42.2-75.2); PLATELET COUNT (AUTO) 173 K/uL (140-450); RED CELL DISTRIBUTION WIDTH 14.4 % (11.6-13.7)
[2020-07-19 12:21] LABS: ALBUMIN 3.3 g/dL (3.4-5.0); ANION GAP 12.6 (8-16); ASPARTATE AMINOTRANSFERASE 13 U/L (15-37); CARBON DIOXIDE 26.4 mmol/L (21-32); CHLORIDE 101 mmol/L (98-107); CREATININE 1.2 mg/dL (0.6-1.3); GLUCOSE 112 mg/dL (74-106); SODIUM SERUM 136 mmol/L (136-145); TOTAL BILIRUBIN 0.7 mg/dL (0.0-1.0); UREA NITROGEN, BLOOD 14 mg/dL (7-18)
--- NOTE | 2020-07-19 12:59 | NUR ---
HAD PT AMBULATE PER DR. DAVID ORDERS. PT AMBULATE STEADY WITH FRONT WHEEL WALKER (USES AT BASELINE). NO DIZZINESS OR DISCOMFORT WHEN CHANGING POSITIONS OR WITH AMBULATION. Addendum: 07/19/[address] at [address] FRANKIE LADD
--- NOTE | 2020-07-19 13:09 | NUR ---
GARLAND WILL COME CASKET ASSEMBLER METAL PATIENT IN 1/2 HOUR
--- NOTE | 2020-07-19 13:31 | NUR ---
PER GARLAND, ETA CHANGED TO 1430
--- NOTE | 2020-07-19 15:00 | NUR ---
Patient discharged with v/s stable. Written and verbal after care instructions given and explained. Patient verbalized understanding. Wheel Chair Assisted with to car. All questions addressed prior to discharge. Advised to follow up with PMD.
[2020-07-19 15:04] VITALS: BP 142/62
== END 2020-07-19 15:00 | disposition home or self-care (01) ==
LOC: MED 10:40
DX: R53.1 Weakness (principal); R55 Syncope and collapse; F41.9 Anxiety disorder, unspecified; I11.0 Hypertensive heart disease with heart failure; E07.9 Disorder of thyroid, unspecified; J44.9 Chronic obstructive pulmonary disease, unspecified; Z86.73 Personal history of transient ischemic attack (TIA), and cerebral infarction without residual deficits; Z79.899 Other long term (current) drug therapy
CPT/HCPCS: 36415; 71045; 80053; 81003; 84484; 85025; 93005; 99285; Q0092